=== PATIENT | female | born 1955 | race Hispanic/Latino ===

== ENCOUNTER 2025-06-08 08:19 | Outpatient (CLI) | payer MEDICARE, OTHER | END 2025-06-08 08:20 | disposition home or self-care (01) | LOC: CSHSLEEP 08:19 | PROVIDERS: ATTEND Internal Medicine Cardiovascular Disease | DX: G47.33 Obstructive sleep apnea (adult) (pediatric) (principal); R53.83 Other fatigue; R06.83 Snoring; G47.00 Insomnia, unspecified | CPT/HCPCS: 95800 ==